=== PATIENT | female | born 1945 | race Caucasian/White ===

== ENCOUNTER 2018-01-30 15:00 | Emergency (ER) | payer MEDICARE, SELFPAY ==
[2018-01-30 15:08] VITALS: BP 137/48; PULSE 62; RESP 12; TEMP 36.4; O2SAT 99; BMI 25.5
--- NOTE | 2018-01-30 15:08 | ED_ITS ---
HPI - Syncope General Chief Complaint: Syncope Stated Complaint: Syncope Time Seen by Provider: 01/30/18 15:07 Source: patient and EMS Mode of arrival: EMS Limitations: no limitations History of Present Illness HPI narrative: Patient is a 72-year-old female who presents after syncopal episode. She had eyelid surgery down in [place] this morning. she was told not to eat or drink anything after midnight she did not eat anything on the drive back. She was sitting in the recliner she stood up to go the bathroom she felt extremely lightheaded dizzy and had some abdominal pain and passed out. says that was briefly in just for few minutes. She has no head injury no chest pain palpitations. She apparently has a known dilated aortic root which was on echocardiograms a couple of months ago at the cardiology office. 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 She now is feeling much better and has no complaints. Related Data Home Medications Medication Instructions Recorded Confirmed Vitamin B-12 1 tab PO DAILY 01/30/18 01/30/18 acetaminophen-codeine 1 tab PO PRN PRN 01/30/18 01/30/18 calcium carb-D3-mag ox-zinc ox 1 tab PO DAILY 01/30/18 01/30/18 erythromycin 1 applic OPHTHALMIC (EYE) 01/30/18 01/30/18 DIRECTED lisinopril 10 mg PO DAILY 01/30/18 01/30/18 metoprolol succinate 50 mg PO DAILY 01/30/18 01/30/18 multivitamin 1 tab PO DAILY 01/30/18 01/30/18 pravastatin 40 mg PO DAILY 01/30/18 01/30/18 vitamin B complex 1 tab PO DAILY 01/30/18 01/30/18 Allergies Allergy/AdvReac Type Severity Reaction Status Date / Time No Known Drug Allergies Allergy Verified 01/30/18 15:19 Review of Systems Review of Systems All systems reviewed & are unremarkable except as noted in HPI and below Constitutional Denies chills, Denies fever(s), Denies lethargy and Denies weakness Eyes Reports as per HPI Cardiovascular Reports as per HPI, Denies chest pain, Denies chest pain at rest, Reports syncope, Denies dyspnea and Denies dyspnea on exertion Respiratory Denies cough, Denies dyspnea, Denies dyspnea on exertion and Denies wheezing Gastrointestinal Gastrointestinal: Reports abdominal pain Musculoskeletal Denies back pain, Denies muscle weakness, Denies numbness and Denies tingling Neurologic Reports syncope, Denies numbness, Denies tingling and Denies weakness Allergic/Immunologic Denies wheezing PFS Medical History Hypertension (Acute) Surgical History History of eyelid surgery (Acute) Social History Smoking Status: Never smoker Exam Initial Vital Signs Initial Vital Signs: Vital Signs Temperature 97.6 F 01/30/18 15:08 Pulse Rate 62 01/30/18 15:08 Respiratory Rate 12 01/30/18 15:08 Blood Pressure 137/48 H 01/30/18 15:08 Pulse Oximetry 99 01/30/18 15:08 GENERAL: Well-appearing, well-nourished and in no acute distress. HEENT: Head atraumatic, face symmetric, moist mucous membranes EYES: Eyelids appear within normal limits no significant swelling or contusion.EOMI, pupils reactive CARDIOVASCULAR: Regular rate and rhythm without murmurs, rubs or gallops. RESPIRATORY: Breath sounds equal bilaterally, no wheezes rales or rhonchi. ABDOMEN: Soft, nontender. Normoactive bowel sounds all 4 quadrants. No guarding or rebound. No palpable masses or pulsations EXTREMITIES: Normal range of motion, no clubbing or edema. Neurovascularly intact. NEUROLOGICAL: Alert and oriented x4.Normal gait and speech. Cranial nerves II through XII grossly intact. Good [id number]-si-[id number], good [id number], strength equal bilaterally, no dysarthria or aphasia, sensation in tact to soft touch bilaterally, no visual changes, no facial droop SKIN: Warm, dry, no laceration, no petechiae, no rashes or lesions. Scores NIH Stroke Scale Level of Conciousness: Alert, keenly responsive Ask month/age: Answers both questions correctly. Open/close eyes, close hand: Performs both tasks correctly Best gaze horizontal: Normal Visual benitez: No visual loss Facial palsy: Normal symetrical movement Left arm drift: No drift for full 10 sec Right arm drift: No drift for full 10 sec Left leg drift: No drift for full 10 sec Right leg drift: No drift for full 10 sec Limb ataxia: Absent Sensory on face/arms/legs: Normal, no sensory loss Best language: No aphasia, normal Dysarthria: Normal Extinction or inattention: No abnormality Total NIH Stroke scale score: 0 Course Orders Ordered: Discontinued Medications Sodium Chloride (Normal Saline 0.9%) 1,000 mls @ 1,000 mls/hr IV BOLUS ONE Stop: 01/30/18 16:08 Last Infusion: 01/30/18 18:13 Dose: 0 mls/hr Infusion: 01/30/18 17:20 Dose: 1,000 mls/hr Infusion: 01/30/18 16:41 Dose: 0 mls/hr Admin: 01/30/18 15:57 Dose: 1,000 mls/hr Vital Signs - 8 hr 01/30/18 15:08 01/30/18 16:10 01/30/18 16:45 Temperature 97.6 F Pulse Rate 62 66 72 Respiratory Rate 12 16 18 Blood Pressure 137/48 H Blood Pressure [Right Arm] 137/63 H 148/68 H Pulse Oximetry 99 100 100 MDM - Syncope Lab Data Attestation: I reviewed the patient's lab results. Result diagrams: 01/30/18 15:40 01/30/18 15:40 Lab Results 01/30/18 01/30/18 Range/Units 15:40 15:40 WBC 7.2 (4.5-11.0) X10^3/uL RBC 4.17 (4.0-5.2) X10^6/uL Hgb 12.9 (12.0-16.0) g/dL Hct 37.6 (36-46) % MCV 90.0 (80-100) fL MCH 31.0 (26-34) PG MCHC 34.5 (30-36) % RDW 12.9 (11.6-14.8) % Plt Count 159 (150-400) X10^3/uL Neut % (Auto) 71.8 (50-75) % Lymph % (Auto) 20.4 L (25-40) % [place] % (Auto) 6.3 (3-14) % Eos % (Auto) 0.9 L (2-4) % Baso % (Auto) 0.6 (0-2) % Neut # (Auto) 5200 (8590-4625) /uL Sodium 145 (137-145) mmol/L Potassium 3.8 (3.4-5.1) mmol/L Chloride 108 H (98-107) mmol/L Carbon Dioxide 27 (22-32) mmol/L BUN 15 (7-17) mg/dL Creatinine 0.70 (0.52-1.04) mg/dL Estimated GFR > 60.0 (>60) mL/min BUN/Creatinine Ratio 21.4 (6-22) Glucose 128 H (80-110) mg/dL Calcium 8.5 (8.4-10.2) mg/dL Total Bilirubin 0.6 (0.2-1.3) mg/dL AST 53 H (14-36) IU/L ALT 43 (9-52) IU/L Alkaline Phosphatase 59 (38-126) U/L Total Creatine Kinase 77 (30-135) U/L Troponin I < 0.012 (0.01-0.034) ng/mL Total Protein 6.0 L (6.3-8.2) g/dL Albumin 3.7 (3.5-5.0) g/dL Globulin 2.3 (1.7-4.1) g/dL Albumin/Globulin Ratio 1.6 (1.0-2.8) Imaging Data CT angio: Radiologist's impression: PROCEDURE: CT ANGIO CHEST ABDOMEN PELVIS INDICATIONS: Syncope with hypotension, known dilated aortic root per patient. TECHNIQUE: Precontrast 5 mm thick sections acquired from the lung apices to the iliac crests. After the administration of intravenous contrast, 2.5 mm thick sections again acquired from the lung apices to the iliac crests. Maximum intensity projection (MIP) oblique sagittal and coronal reformats were then acquired. For radiation dose reduction, the following was used: automated exposure control. COMPARISON: None. FINDINGS: Image quality: Excellent. AORTA: Mild diffuse plaque, causing mild diffuse stenosis. Left vertebral artery arises directly from the aortic arch, indicating a normal variant. No evidence of aortic dissection, nor aneurysm. CHEST: Lungs and pleura: No acute airspace opacities. Mild dependent bibasilar scarring versus atelectasis is present. No pleural effusions or pneumothorax. Central and peripheral airways are patent and normal in caliber. Mediastinum: Heart size is normal. There is calcification of the coronary vasculature. No pericardial effusion. No mediastinal or hilar adenopathy by size criteria. Central pulmonary arteries are normal in size. Esophagus is normal in caliber. No hiatal hernias. Bones and chest wall: No axillary adenopathy by size criteria. Thyroid gland demonstrates small bilateral low density nodules. No suspicious bony lesions. No vertebral body compression fractures. ABDOMEN: Vasculature: Celiac trunk and mesenteric arteries are patent. Renal arteries are also patent. Solid organs: Liver is normal in size and enhancement. Gallbladder is surgically absent. Biliary system is non dilated. Pancreas enhances normally. Spleen is normal in size and enhancement. No adrenal nodules. Both kidneys are normal in size and enhancement, without hydronephrosis. Peritoneum and bowel: No free fluid or air. Moderate gastric distention is present. Bowel loops are otherwise normal in caliber and wall thickness. The appendix is not seen. Appendectomy clips are present. Nodes and vessels: No retroperitoneal or mesenteric adenopathy by size criteria. Inferior vena cava is normal in morphology. Miscellaneous: No ventral hernias. PELVIS: Genitourinary: Bladder wall thickness is normal. Miscellaneous: No inguinal hernias or adenopathy. No ventral hernias. Bones: No suspicious bony lesions. No vertebral body compression fractures. IMPRESSION: 1. Moderate gastric distention, possibly indicating peptic ulcer disease or obstructing neoplasm. Endoscopy could be performed for further assessment, if clinically indicated. 2. Bilateral thyroid nodules, which could be further assessed with nonemergent ultrasound, if clinically indicated. 3. Coronary artery disease. 4. Negative evaluation of the thoracoabdominal aorta. Dictated by: Dane Barlow M.D. on 01/30/2018 at 17:04 Approved by: Dane Barlow M.D. on 01/30/2018 at 17:09 ECG Data Attestation: I personally reviewed and interpreted this ECG as follows: Prior ECG tracings: not available for review Interpretation: Normal sinus rhythm rate [address] changes no T-wave inversions no priors to compare MDM Narrative Medical decision making narrative: There is no sign of aneurysm rupture on CT. Patient likely had a syncopal episode from a not eating or drinking prior to surgery or after surgery. She is feeling better after IV fluids. She is ambulatory to the restroom. She has no focal deficits no sign of head trauma I do not believe head CT indicated at this time. She is also not on any blood thinners. I discussed all findings with the patient and spouse. Education has been performed regarding treatment plan, diagnosis, warning signs and symptoms and all concerns have been addressed. Verbally agree with and understood all of the above. Discharge Plan Departure Patient Disposition: Home, Self-Care Clinical Impression: Vasovagal syncope Discharge Date/Time: 01/30/18 18:20 Interventions: ED Discharge Assessment Last Done: 01/30/18 18:17 Instructions: Fainting Activity Restrictions/Additional Instructions: *You have been diagnosed with syncopal fainting episode *What to do: This event was likely caused from decreased intake due to recent surgery, recommend he eating and drinking normally Please follow all Ophthalmology recommendations *Continue to take medications as directed *Follow up with your primary care provider in 2-3 days *Return to ER if you should have any new, worsening or concerning symptoms Prescriptions: No Action pravastatin 40 mg tablet 40 mg PO DAILY RF: 0 metoprolol succinate 50 mg tablet extended release 24 hr 50 mg PO DAILY RF: 0 acetaminophen-codeine 300-30 mg tablet 1 tab PO PRN PRN (Reason: post-op pain) RF: 0 erythromycin 5 mg/gram (0.5 %) ointment 1 applic ophthalmic (eye) DIRECTED RF: 0 lisinopril 10 mg tablet 10 mg PO DAILY RF: 0 Vitamin B-12 1 tab PO DAILY RF: 0 calcium carb-D3-mag ox-zinc ox 1 tab PO DAILY RF: 0 multivitamin 1 tab PO DAILY RF: 0 vitamin B complex 1 tab PO DAILY RF: 0
--- NOTE | 2018-01-30 15:47 | DI.CT.S_ITS ---
PROCEDURE: CT ANGIO CHEST ABDOMEN PELVIS INDICATIONS: Syncope with hypotension, known dilated aortic root per patient. TECHNIQUE: Precontrast 5 mm thick sections acquired from the lung apices to the iliac crests. After the administration of intravenous contrast, 2.5 mm thick sections again acquired from the lung apices to the iliac crests. Maximum intensity projection (MIP) oblique sagittal and coronal reformats were then acquired. For radiation dose reduction, the following was used: automated exposure control. COMPARISON: None. FINDINGS: Image quality: Excellent. AORTA: Mild diffuse plaque, causing mild diffuse stenosis. Left vertebral artery arises directly from the aortic arch, indicating a normal variant. No evidence of aortic dissection, nor aneurysm. CHEST: Lungs and pleura: No acute airspace opacities. Mild dependent bibasilar scarring versus atelectasis is present. No pleural effusions or pneumothorax. Central and peripheral airways are patent and normal in caliber. Mediastinum: Heart size is normal. There is calcification of the coronary vasculature. No pericardial effusion. No mediastinal or hilar adenopathy by size criteria. Central pulmonary arteries are normal in size. Esophagus is normal in caliber. No hiatal hernias. Bones and chest wall: No axillary adenopathy by size criteria. Thyroid gland demonstrates small bilateral low density nodules. No suspicious bony lesions. No vertebral body compression fractures. ABDOMEN: Vasculature: Celiac trunk and mesenteric arteries are patent. Renal arteries are also patent. Solid organs: Liver is normal in size and enhancement. Gallbladder is surgically absent. Biliary system is non dilated. Pancreas enhances normally. Spleen is normal in size and enhancement. No adrenal nodules. Both kidneys are normal in size and enhancement, without hydronephrosis. Peritoneum and bowel: No free fluid or air. Moderate gastric distention is present. Bowel loops are otherwise normal in caliber and wall thickness. The appendix is not seen. Appendectomy clips are present. Nodes and vessels: No retroperitoneal or mesenteric adenopathy by size criteria. Inferior vena cava is normal in morphology. Miscellaneous: No ventral hernias. PELVIS: Genitourinary: Bladder wall thickness is normal. Miscellaneous: No inguinal hernias or adenopathy. No ventral hernias. Bones: No suspicious bony lesions. No vertebral body compression fractures. IMPRESSION: 1. Moderate gastric distention, possibly indicating peptic ulcer disease or obstructing neoplasm. Endoscopy could be performed for further assessment, if clinically indicated. 2. Bilateral thyroid nodules, which could be further assessed with nonemergent ultrasound, if clinically indicated. 3. Coronary artery disease. 4. Negative evaluation of the thoracoabdominal aorta. Dictated by: Dane Barlow M.D. on 01/30/2018 at 17:04 Approved by: Dane Barlow M.D. on 01/30/2018 at 17:09
[2018-01-30 15:50] LABS: Add Manual Diff / Slide Review NO; Basophils Percent Auto 0.6 % (0-2); Eosinophils Percent Auto 0.9 % (2-4); Hematocrit 37.6 % (36-46); Hemoglobin 12.9 g/dL (12.0-16.0); Lymphocytes Percent Auto 20.4 % (25-40); Mean Corpuscular HGB Conc 34.5 % (30-36); Monocytes Percent Auto 6.3 % (3-14); Neutrophils Absolute Auto 5200 /uL (3000-5900); Neutrophils Percent Auto 71.8 % (50-75); Platelet Count 159 X10^3/uL (150-400); Red Blood Cell Count 4.17 X10^6/uL (4.0-5.2); Red Cell Distribution Width 12.9 % (11.6-14.8); White Blood Cell Count 7.2 X10^3/uL (4.5-11.0)
[2018-01-30] MEDS: SODIUM CHLORIDE 0.9% 1,000 ML 1000 ML IV (15:57)
[2018-01-30 16:04] LABS: Alanine Aminotransferase 43 IU/L (9-52); Albumin 3.7 g/dL (3.5-5.0); Albumin Globulin Ratio 1.6 (1.0-2.8); Alkaline Phosphatase 59 U/L (38-126); Aspartate Aminotransferase 53 IU/L (14-36); BUN Creatinine Ratio 21.4 (6-22); Bilirubin Total 0.6 mg/dL (0.2-1.3); Blood Urea Nitrogen 15 mg/dL (7-17); Calcium 8.5 mg/dL (8.4-10.2); Carbon Dioxide 27 mmol/L (22-32); Chloride 108 mmol/L (98-107); Creatine Kinase 77 U/L (30-135); Estimated Glomerular Filt Rate > 60.0 mL/min (>60); Globulin 2.3 g/dL (1.7-4.1); Glucose 128 mg/dL (80-110); HEMOLYSIS 20 (0-50); Potassium 3.8 mmol/L (3.4-5.1); Sodium 145 mmol/L (137-145)
[2018-01-30 16:10] VITALS: BP 137/63; PULSE 66; RESP 16; O2SAT 100
[2018-01-30 16:19] LABS: Troponin I < 0.012 ng/mL (0.01-0.034)
[2018-01-30 16:45] VITALS: BP 148/68; PULSE 72; RESP 18; O2SAT 100
[2018-01-30 18:00] VITALS: BP 138/59; PULSE 62; RESP 13; O2SAT 99
== END 2018-01-30 18:20 | disposition home or self-care (01) ==
PROVIDERS: Emergency Provider Emergency Medicine
DX: R55 Syncope and collapse (principal)
CPT/HCPCS: 71275; 74174; 80053; 82550; 82553; 82962; 84484; 85025; 93005; 96360; 96361; 99284; 99285; Q9967

== ENCOUNTER → 2020-08-03 08:54 | Outpatient (CLI) | payer MEDICARE, SELFPAY ==
[2020-08-03 10:10] LABS: COVID19 -Nasal RAPID Negative (Negative)
== END ==
PROVIDERS: Visit Provider Physician Assistant
DX: Z20.822 Contact with and (suspected) exposure to COVID-19 (principal)
CPT/HCPCS: 87635; C9803

== ENCOUNTER 2020-08-05 08:30 | Day surgery (SDC) | payer MEDICARE, SELFPAY ==
--- NOTE | 2020-08-05 | PATH_ITS ---
[facility] Accession Number: [id number] . 01 Material submitted: . PART A: duodenum bulb - NODULE IN DUODENAL BULB PART B: gastrointestinal site - GASTRIC . 01 Clinical history: . EGD B. RULE OUT H. PYLORI . 02 Diagnosis: A. Duodenal Bulb, Nodule, Biopsy: Consistent with gastric heterotopia. Negative for intraepithelial lymphocytosis. Negative for dysplasia and malignancy. . B. Stomach, Biopsy: Antral mucosa with reactive gastropathy. Body-type mucosa with no diagnostic abnormality. No evidence of Helicobacter organisms on H/E stain. Negative for intestinal metaplasia. Negative for dysplasia and malignancy. . [facility] 08/07/2020 1505 Local . 02 Comment: B. An immunohistochemical stain will be performed to evaluate for Helicobacter organisms, and the results reported as an addendum. . 02 Electronically signed: . Sonali Ramirez MD, Pathologist NPI- [id number] . 01 Gross description: . Part A: NODULE IN DUODENAL BULB: Received in formalin are multiple fragment(s) of larose, soft tissue measuring 0.1 x 0.1 x 0.1 cm to 0.2 x 0.2 x 0.1 cm submitted entirely in 1 cassette(s) Part B: GASTRIC: Received in formalin are 4 fragment(s) of larose, soft tissue measuring 0.1 x 0.1 x 0.1 cm to 0.3 x 0.2 x 0.2 cm submitted entirely in 1 cassette(s) /[facility] 08/06/2020 1854 Local . 02 Pathologist provided ICD-10: R19.8 . 02 CPT . 273124, 734096, [id number] Performed at: 01 [facility] [address] [id number] MD Js Marroquin MD Phone: [phone] Performed at: 02 [facility] [id number] [place] [id number] MD Sonali Ramirez MD Phone: [phone]
[2020-08-05 08:53] VITALS: BP 163/75; PULSE 78; RESP 13; TEMP 36.2; O2SAT 99; BMI 25.8
[2020-08-05] MEDS: SODIUM CHLORIDE 0.9% 1,000 ML 70 ML IV (09:15)
[2020-08-05 09:19] VITALS: BMI 25.8
--- NOTE | 2020-08-05 09:19 | P.HP_ITS ---
History of Present Illness History of Present Illness Date Patient Seen: 08/05/20 Time Patient Seen: 09:15 Chief complaint: EGD Narrative: Patient is a pleasant 75-year-old female who presented for upper endoscopy. She was last evaluated by video visit earlier this month. She was describing symptoms of gastroesophageal reflux and a sore throat. She does have a previous history of gastroparesis. She also had a CT scan of the abdomen pelvis in 2018 which did show concern for peptic ulcer disease versus mass. Patient History Medical History (Updated 02/14/18 @ 00:00 by ) Hypertension Surgical History (Updated 01/31/18 @ 07:51 by Vidya Lozada DO) History of eyelid surgery Family & Social History Social History: household members spouse Tobacco & Substance use: Smoking Status Never smoker alcohol intake frequency a few times a month Substance Use Type does not use Meds Home Medications and Allergies Home Medications Medication Instructions Recorded Confirmed Type Vitamin B-12 1 tab PO DAILY 01/30/18 01/30/18 History calcium carb-D3-mag ox-zinc ox 1 tab PO DAILY 01/30/18 08/05/20 History lisinopril 10 mg PO DAILY 01/30/18 01/30/18 History metoprolol succinate 50 mg PO DAILY 01/30/18 01/30/18 History multivitamin 1 tab PO DAILY 01/30/18 08/05/20 History pravastatin 40 mg PO DAILY 01/30/18 01/30/18 History vitamin B complex 1 tab PO DAILY 01/30/18 08/05/20 History Allergies Allergy/AdvReac Type Severity Reaction Status Date / Time No Known Drug Allergies Allergy Verified 01/30/18 15:19 Review of Systems Review of Systems ROS: Yes All systems reviewed with the patient and are negative except as otherwise documented Exam Vital Signs (past 8 hours): - 08/05/20 08:53 Temperature 97.1 F L Pulse Rate 78 Respiratory Rate 13 Blood Pressure 163/75 H Pulse Oximetry 99 Oxygen Delivery Method Room Air Oxygen Flow Rate 0 Const General: cooperative, healthy appearing, comfortable, well developed and well groomed Nutritional Appearance: average body habitus and well nourished [facility] Head: normocephalic and atraumatic Resp Effort & Inspection: normal respiratory effort, able to speak in complete sentences and abnormal respiratory pattern Auscultation: clear to auscultation bilaterally Cardio Rate: regular rate Rhythm: regular rhythm Heart Sounds: S1 normal and S2 normal GI Palpation: soft Auscultation: normal bowel sounds Extrem Right lower extremity: no edema Left lower extremity: no edema Assessment & Plan Assessment & Plan narrative: 1. Sore throat 2. GERD 3. Abnormal CT scan - EGD today, further recommendations to follow
[2020-08-05] MEDS: LIDOCAINE 4% SOLN 50 ML 20 ML TOP (09:21)
[2020-08-05] MEDS: MIDAZOLAM 5 MG/5 ML VIAL IV (09:24)
[2020-08-05] MEDS: fentaNYL 250 MCG/5 ML INJ IV (09:24)
[2020-08-05 09:39] VITALS: BP 114/61; PULSE 63; RESP 12; TEMP 36.7; O2SAT 93
--- NOTE | 2020-08-05 09:39 | PM.OP.ENDO ---
Operative Date/Time/Diagnoses Date of procedure: 08/05/20 Time of procedure: 09:22 Procedure Notes Procedure in detail: Surgeon: Letty Medrano DO Procedure: Esophagogastroduodenoscopy with biopsy Preoperative diagnosis: 1. Heartburn/gastroesophageal reflux 2. Sore throat 3. Abnormal CT scan 2018 Postoperative diagnosis: 1. Normal-appearing esophagus 2. Small hiatal hernia 3. Rule out H pylori 4. Nodular mucosa in the duodenal bulb, biopsied Medications: Conscious sedation using 4 mg IV of Midazolam and 100 mcg IV of Fentanyl, 4% lidocaine gargle Preanesthesia Assessment An H and P was performed/updated and the Px?s ASA class is 2. The procedure was discussed in detail with the patient. The potential risks and complications including infection, bleeding, missed lesions, perforation, need for surgery in case of perforation, prolonged hospital stay, and were explained. A brief question and answer period was allotted and once all questions were answered, informed consent was obtained. The patient was brought back to the procedure room and placed on standard monitoring. The patient?s vital signs were monitored continuously throughout the entire procedure. Prior to starting, a timeout was performed to confirm the patient?s identity, allergies, medications, and procedure. Procedure in detail The patient was placed in left lateral decubitus position and a bite block was inserted. The tip of the upper endoscope was placed into the mouth and advanced without difficulty under direct visualization into the esophagus. Esophagus: Normal-appearing esophagus Stomach: Small hiatal hernia Normal-appearing gastric mucosa, biopsied to rule out H pylori Duodenum: Nodular mucosa in the gastric colon, biopsied The patient tolerated the procedure well and will be brought back to the recovery area to be discharged once criteria are met. The total physician intraservice time was 10min. Complications There were no complications and estimated blood loss was minimal. Recommendations: Resume previous diet Continue outPx medications Follow up pathology results Office follow up if persistent symptoms An emergency contact number was given to the patient for any complications related to the procedure
[2020-08-05 09:44] VITALS: BP 112/58; PULSE 61; RESP 15; O2SAT 94
[2020-08-05 09:48] VITALS: BP 123/63; PULSE 69; RESP 18; O2SAT 95
[2020-08-05 09:54] VITALS: BP 110/58; PULSE 66; RESP 16; O2SAT 95
[2020-08-05 09:56] VITALS: BP 103/62; PULSE 62; RESP 11; TEMP 36.4; O2SAT 97
== END 2020-08-05 10:22 | disposition home or self-care (01) ==
PROVIDERS: Referring Provider Student in an Organized Health Care Education/Training Program; Visit Provider Student in an Organized Health Care Education/Training Program
PROC: 0DJ08ZZ Inspection of Upper Intestinal Tract, Via Natural or Artificial Opening Endoscopic (ICD-10-PCS; CPT 43235; principal; 2020-08-05 09:30)
DX: K21.9 Gastro-esophageal reflux disease without esophagitis (principal); J02.9 Acute pharyngitis, unspecified; K44.9 Diaphragmatic hernia without obstruction or gangrene
CPT/HCPCS: 43239; J2250; J3010

== ENCOUNTER → 2021-03-04 10:46 | Outpatient (CLI) | payer MEDICARE, SELFPAY ==
[2021-03-04 11:47] LABS: Alanine Aminotransferase 27 IU/L (<35); Albumin 4.6 g/dL (3.5-5.0); Albumin Globulin Ratio 1.6 (1.0-2.8); Alkaline Phosphatase 72 U/L (38-126); Aspartate Aminotransferase 36 IU/L (14-36); BUN Creatinine Ratio 28.8 (6-22); Bilirubin Total 1.2 mg/dL (0.2-1.3); Blood Urea Nitrogen 21 mg/dL (7-17); Calcium 9.7 mg/dL (8.4-10.2); Carbon Dioxide 27 mmol/L (22-32); Chloride 106 mmol/L (98-107); Cholesterol 168 mg/dL (140-199); Estimated Glomerular Filt Rate > 60.0 mL/min (>60); Globulin 2.8 g/dL (1.7-4.1); Glucose 93 mg/dL (80-110); HDL Cholesterol 52 mg/dL (40-60); HEMOLYSIS < 15 (0-50); LDL Cholesterol Calculated 84 mg/dL (<100); Potassium 4.4 mmol/L (3.4-5.1); Sodium 140 mmol/L (137-145); Total Protein 7.4 g/dL (6.3-8.2); Triglycerides 159 mg/dL (35-150)
== END ==
PROVIDERS: Referring Provider Internal Medicine Cardiovascular Disease; Visit Provider Internal Medicine Cardiovascular Disease
DX: I10 Essential (primary) hypertension (principal); E78.00 Pure hypercholesterolemia, unspecified
CPT/HCPCS: 36415; 80053; 80061

== ENCOUNTER → 2022-03-04 11:19 | Outpatient (CLI) | payer MEDICARE, SELFPAY ==
[2022-03-04 12:55] LABS: Cholesterol 190 mg/dL (140-199); HDL Cholesterol 55 mg/dL (40-60); LDL Cholesterol Calculated 103 mg/dL (<100); Triglycerides 161 mg/dL (35-150)
== END ==
PROVIDERS: PCP Internal Medicine; Referring Provider Internal Medicine Cardiovascular Disease; Visit Provider Internal Medicine Cardiovascular Disease
DX: I10 Essential (primary) hypertension (principal); I71.2 Thoracic aortic aneurysm, without rupture; E78.00 Pure hypercholesterolemia, unspecified
CPT/HCPCS: 36415; 80061

== ENCOUNTER → 2022-03-15 09:08 | Outpatient (CLI) | payer MEDICARE, SELFPAY ==
[2022-03-15 10:42] LABS: COVID19 -Nasal RAPID Negative (Negative)
== END ==
PROVIDERS: PCP Internal Medicine; Visit Provider Surgery
DX: Z20.822 Contact with and (suspected) exposure to COVID-19 (principal); Z01.812 Encounter for preprocedural laboratory examination
CPT/HCPCS: 87635; C9803

== ENCOUNTER 2022-03-16 11:35 | Day surgery (SDC) | payer MEDICARE, SELFPAY ==
[2022-03-16 12:35] VITALS: BMI 24.7
[2022-03-16 13:04] VITALS: BP 155/83; PULSE 68; RESP 16; TEMP 36.9; O2SAT 99
[2022-03-16] MEDS: LACTATED RINGERS 1,000 ML 42 ML IV (13:06)
--- NOTE | 2022-03-16 13:55 | PM.HP.1 ---
History of Present Illness History of Present Illness Chief complaint: Colonoscopy Patient History Medical History (Updated 07/07/21 @ 11:32 by MICKI Amaral) Hypertension Surgical History (Updated 03/16/22 @ 12:32 by Cynthia Damian RN) History of eyelid surgery History of laparoscopic appendectomy Hx laparoscopic cholecystectomy Family & Social History Social History: household members spouse Tobacco & Substance use: Smoking Status Never smoker alcohol intake current alcohol intake frequency a few times a month Substance Use Type does not use Meds Home Medications and Allergies Home Medications Medication Instructions Recorded Confirmed Type Vitamin B-12 1 tab PO DAILY 01/30/18 03/16/22 History calcium carb-D3-mag ox-zinc ox 1 tab PO DAILY 01/30/18 03/16/22 History lisinopril 10 mg tablet 10 mg PO DAILY 01/30/18 03/16/22 History pravastatin 40 mg tablet 40 mg PO DAILY 01/30/18 03/16/22 History vitamin B complex 1 tab PO DAILY 01/30/18 07/07/21 History metoprolol tartrate 25 mg tablet 25 mg PO DAILY PRN Hypertension 03/16/22 03/16/22 History Allergies Allergy/AdvReac Type Severity Reaction Status Date / Time No Known Drug Allergies Allergy Verified 03/16/22 12:31 Review of Systems Review of Systems Narrative: Negative Exam Vital Signs (past 8 hours): - 03/16/22 13:04 Temperature 98.4 F Pulse Rate 68 Respiratory Rate 16 Blood Pressure 155/83 H Pulse Oximetry 99 Oxygen Delivery Method Room Air Oxygen Delivery Method Room Air Narrative Exam Narrative: Awake alert and oriented x3, pupils equal round reactive to light, oropharynx clear, heart regular rate and rhythm, lungs clear to auscultation bilaterally, abdomen nontender and nondistended, extremities without edema, no gross neurologic deficits noted Assessment & Plan Assessment & Plan narrative: Colon cancer screening for colonoscopy today Time Spent With Patient Critical Care time: I spent a total of [] minutes of critical care time on this patient's care today; this time is exclusive of procedural time.
[2022-03-16 14:56] VITALS: BP 137/66; PULSE 67; RESP 18; TEMP 36.4; O2SAT 98
--- NOTE | 2022-03-16 14:57 | PM.OP.COLON ---
Operative Date/Time/Diagnoses Date of procedure: 03/16/22 Procedure & Clinicians Study performed: Aborted diagnostic colonoscopy Indications: Colon cancer screening. Personal history of colon polyps. Last colonoscopy was done in 2016. Procedure Notes Procedure in detail: Prior to the procedure, history and physical was performed, and patient medications and allergies were reviewed. Preprocedure nursing history and assessment was reviewed. Patient identification and proposed procedure were verified by the physician and nurse in the procedure room. The physical status of the patient was reassessed after the procedure. After informed consent was obtained including risks, benefits, and alternatives, the scope was passed under direct vision. Throughout the procedure, the patient's blood pressure, pulse, and oxygen saturations were monitored continuously. The pediatric colonoscope was introduced through the anus and advanced to the sigmoid where it could not be advanced further. This was replaced with the EGD scope which was advanced to the transverse colon. The patient tolerated the procedure well. Bowel prep was deemed adequate to detect polyps greater than 5 mm. REMBERTO and perianal examinations unremarkable. Retroflexion in the rectum revealed grade 1 internal hemorrhoids. Numerous medium-sized diverticula noted throughout the sigmoid colon. An area of severe congestion and erythema was noted from 15cm to 20 cm in the sigmoid colon. There was a focal erosion in this region with scant mucosal hemorrhage concerning for an inflamed diverticulum. This area could not be traversed with the pediatric colonoscope, but could be traversed with the EGD scope. The EGD scope was advanced to the transverse colon where significant looping was encountered. No mucosal abnormalities were seen aside from scattered diverticula from the transverse colon through the distal descending colon. Decision was made to abort the colonoscopy in order to avoid exacerbating any acute pathology at the sigmoid colon. Impression: Internal hemorrhoids Severely congested and erythematous mucosa from 15-20 cm in sigmoid colon with a hemorrhagic, inflamed focal erosion concerning for acute diverticulitis Acute angulation and tortuosity encountered in the sigmoid colon precluding completion of colonoscopy Complications: other (EBL minimal. No complications) Post-procedure Plan for aftercare: Perform CT of the abdomen and pelvis with IV contrast JERICA Consume a clear to full liquid diet for now. Continue home medications If abdominal pain, fevers, chills, nausea, vomiting, abdominal distension or other acute GI symptoms develop, proceed to the nearest emergency department Patient has a contact number available for emergencies. The signs and symptoms of potential delayed complications were discussed with the patient. Return to normal activities tomorrow. Written discharge instructions were provided to the patient. Discharge home with escort
[2022-03-16 15:01] VITALS: BP 143/73; PULSE 60; RESP 13; O2SAT 99
[2022-03-16 15:06] VITALS: BP 153/77; PULSE 62; RESP 12; O2SAT 99
[2022-03-16 15:20] VITALS: BP 168/79; PULSE 60; RESP 24; TEMP 36.1; O2SAT 98
--- NOTE | 2022-03-16 15:22 | SUR.PHASEI ---
Labs for kidney function drawn per
[2022-03-16 15:28] VITALS: BP 165/74; PULSE 60; RESP 16; TEMP 36.4; O2SAT 98
[2022-03-16 15:54] LABS: BUN Creatinine Ratio 17.6 (6-22); Blood Urea Nitrogen 15 mg/dL (7-17); Estimated Glomerular Filt Rate > 60 mL/min (>60)
== END 2022-03-16 15:39 | disposition home or self-care (01) ==
PROVIDERS: PCP Internal Medicine; Referring Provider Internal Medicine; Visit Provider Internal Medicine
PROC: 0DJD8ZZ Inspection of Lower Intestinal Tract, Via Natural or Artificial Opening Endoscopic (ICD-10-PCS; CPT 45378; principal; 2022-03-16 13:30)
DX: Z86.010 Personal history of colon polyps (principal); Z12.11 Encounter for screening for malignant neoplasm of colon; K63.3 Ulcer of intestine; K56.2 Volvulus; K57.30 Diverticulosis of large intestine without perforation or abscess without bleeding; K64.0 First degree hemorrhoids; I10 Essential (primary) hypertension
CPT/HCPCS: 45378; 36415; 82565; 84520; J2704

== ENCOUNTER → 2022-03-18 10:27 | Outpatient (CLI) | payer MEDICARE, SELFPAY ==
--- NOTE | 2022-03-18 10:29 | DI.CT.S_ITS ---
PROCEDURE: CT ABDOMEN PELVIS W CON INDICATIONS: Diverticulosis of large intestine TECHNIQUE: After the administration of oral and intravenous contrast, axial sections were acquired from the lung bases to the pubic symphysis. Coronal and sagittal reformats were performed. For radiation dose reduction, the following was used: automated exposure control, adjustment of mA and/or kV according to patient size. COMPARISON:None. FINDINGS: Image quality: Excellent. Lung bases: Unremarkable. Heart: No significant findings. ABDOMEN: Liver: Unremarkable. Gallbladder: Status post cholecystectomy. Biliary ducts: Unremarkable. Pancreas: Unremarkable. Spleen: Unremarkable. Adrenal Glands: Unremarkable. Kidneys and Ureters: Unremarkable. Stomach and Bowel: The distal esophagus, stomach, and small bowel are normal. There is no significant diverticulosis except in the distal sigmoid colon. No diverticulitis. There is thickening of the distal sigmoid which has an irregular appearance and is concerning for neoplasm. Peritoneum: No abnormal intraperitoneal fluid. No free air. Ventral Wall: No hernia. Abdominal Nodes: No retroperitoneal or mesenteric adenopathy by size criteria. Vessels: The aorta has atherosclerosis with no aneurysmal dilatation. PELVIS: Pelvic Organs: Pelvic venous vasculature is prominent consistent with pelvic congestion syndrome. Bladder: Unremarkable. Pelvic Nodes: No enlarged lymph nodes. Miscellaneous: No inguinal hernias are seen. Bones: Degenerative changes with no focal abnormality. IMPRESSION: 1. No acute abdominal or pelvic abnormality. 2. Diverticulosis in the sigmoid colon with no diverticulitis. 3. There is thickening of the mckenzie of the distal sigmoid colon which appears asymmetric and concerning for neoplasm. Recommend colonoscopy if not already previously performed. 4. Prominence of the pelvic vasculature, especially on the left consistent with venous pelvic congestion syndrome. Dictated by: Scott Rosales M.D. on 03/18/2022 at 14:37 Approved by: Scott Rosales M.D. on 03/18/2022 at 14:43
== END ==
PROVIDERS: PCP Internal Medicine; Referring Provider Internal Medicine; Visit Provider Internal Medicine
DX: K57.30 Diverticulosis of large intestine without perforation or abscess without bleeding (principal); R93.5 Abnormal findings on diagnostic imaging of other abdominal regions, including retroperitoneum
CPT/HCPCS: 74177; Q9967

== ENCOUNTER → 2022-03-22 18:52 | Outpatient (CLI) | payer MEDICARE, SELFPAY ==
--- NOTE | 2022-03-22 18:55 | DI.MRI.S_ITS ---
PROCEDURE: MR PELVIS WO/W CON INDICATIONS: Possible colonic mass on prior imaging. No definite mass seen on recent colonoscopy, no biopsies obtained at that time. TECHNIQUE: Coronal HASTE, sagittal T2 FSE, axial T1 FSE, axial and coronal nonbreath-hold T2 FSE. Axial dynamic VIBE during administration of contrast. Post-contrast axial and coronal VIBE/2-D FLASH with fat saturation from the iliac crests to the symphysis. Optional diffusion weighted imaging and ADC may be performed. COMPARISON: [facility], CT, CT ABDOMEN PELVIS W CON, 03/18/2022, 12:18. FINDINGS: Image quality: Excellent. Rectum: No definite rectal mass visualized. At the downstream sigmoid colon, near the rectosigmoid junction above the level of the peritoneal reflection, there is a segment of wall thickening of the sigmoid colon with infiltration/edema of the adjacent fat suggestive of acute diverticulitis. Small extraluminal focus of gas adjacent to this area with adjacent enhancement may represent the inflamed diverticulum (for example axial postcontrast series 19, image 19), a tiny developing abscess or microperforation is difficult to exclude. On T2 weighted images, there is suggestion of discontinuity of the colonic wall (sagittal T2 series 3, image 27). Allowing for differences in modality, the pericolonic inflammation does not appear substantially changed in extent since the recent CT. No large volume of extra colonic air or fluid is identified. Other bowel and peritoneum: No substantial pelvic free fluid or free air as above. More proximal colon and small bowel loops are normal in caliber. Bones: Marrow is normal in overall signal. IMPRESSION: 1. No definite rectal mass visualized by MR. 2. Findings are suggestive of acute diverticulitis at the downstream sigmoid colon near the rectosigmoid junction. As there can be overlap in the imaging appearance of diverticulitis and colonic carcinoma, consideration of repeat colonoscopy after completion of therapy may be helpful. 3. Small focus of extraluminal gas with adjacent edema present adjacent to the segment of thickened sigmoid colon may represent had the inflamed diverticulum, however a tiny non-drainable developing abscess or micro-perforation could have this appearance. On T2 weighted images, the wall of the colon appears discontinuous in this area, however the extent of edema and inflammation in this region does not appear substantially changed since the recent CT and there is no large volume extraluminal gas or fluid present to suggest a large colonic perforation. Results of no definite rectal mass, findings suspicious for downstream sigmoid diverticulitis, suspected inflammed diverticulum versus tiny developing abscess and suggestion for follow-up after completion of therapy discussed with Dr. Rasmussen by Dr. Banda at 1414 hours on 03/23/22. Dictated by: Gurjit Banda M.D. on 03/23/2022 at 13:49 Approved by: Gurjit Banda M.D. on 03/23/2022 at 15:19
== END ==
PROVIDERS: PCP Internal Medicine; Referring Provider Internal Medicine; Visit Provider Internal Medicine
DX: C18.7 Malignant neoplasm of sigmoid colon (principal); R93.3 Abnormal findings on diagnostic imaging of other parts of digestive tract
CPT/HCPCS: 72197; A9579

== ENCOUNTER → 2022-04-19 19:43 | Outpatient (CLI) | payer MEDICARE, SELFPAY ==
--- NOTE | 2022-04-19 | DI.MRI.S_ITS ---
PROCEDURE: MR PELIS WO/W CON INDICATIONS: diverticulosis of sigmoid/mass of sigmoid colon TECHNIQUE: Coronal HASTE, sagittal T2 FSE, axial T1 FSE, axial and coronal nonbreath-hold T2 FSE. Axial dynamic VIBE during administration of contrast. Post-contrast axial and coronal VIBE/2-D FLASH with fat saturation from the iliac crests to the symphysis. Optional diffusion weighted imaging and ADC may be performed. COMPARISON: [facility], CT, CT ABDOMEN PELVIS W CON, 03/18/2022, 12:18. [facility], MR, MR PELVIS WO/W CON, 03/22/2022, 19:01. FINDINGS: Image quality: Excellent. Rectum and distal colon: In the distal sigmoid colon/proximal rectum, there is a small diverticulum with thick wall and trace adjacent residual fat stranding along the mesenteric side. Focal underlying colon wall thickening and enhancement in this area has decreased since the prior study and the thickened segment has considerably shortened but not resolved (potentially at a valve). No abnormal T2 signal to suggest definite underlying mass. There is no adjacent free fluid or focal fluid collection. Distally the rectum appears normal Regional lymph nodes (mesorectal, inguinal, iliac): No suspicious adenopathy. Other soft tissues and peritoneum: The uterus contains a few small myometrial fibroids. Ovarian tissue appears normal. Visible small bowel and proximal colon are normal without distension or wall thickening. The urinary bladder has a normal wall thickness. Hree thrown vaginal canal appear normal. Bones: Marrow is normal in overall signal. IMPRESSION: 1. Near complete resolution of focal colon wall thickening adjacent to a thick-walled diverticulum with trace adjacent inflammation. 2. No definite underlying colorectal mass. Correlate with colonoscopy appearance. 3. No development of pericolonic or intramural abscess. Dictated by: Tiarra Mike M.D. on 04/20/2022 at 10:10 Approved by: Tiarra Mike M.D. on 04/20/2022 at 10:40
== END ==
PROVIDERS: PCP Internal Medicine; Referring Provider Internal Medicine; Visit Provider Internal Medicine
DX: K57.30 Diverticulosis of large intestine without perforation or abscess without bleeding (principal); K63.9 Disease of intestine, unspecified
CPT/HCPCS: 72197; A9579

== ENCOUNTER → 2022-04-29 11:54 | Outpatient (CLI) | payer MEDICARE, SELFPAY ==
[2022-04-29 13:33] LABS: COVID19 -Nasal RAPID Negative (Negative)
== END ==
PROVIDERS: PCP Internal Medicine; Visit Provider Surgery
DX: Z20.822 Contact with and (suspected) exposure to COVID-19 (principal); Z01.812 Encounter for preprocedural laboratory examination
CPT/HCPCS: 87635; C9803

== ENCOUNTER 2022-05-02 07:56 | Day surgery (SDC) | payer MEDICARE, SELFPAY ==
--- NOTE | 2022-05-02 | PATH_ITS ---
[facility] Accession Number: [id number] . 01 Material submitted: . colon - ASCENDING COLON POLYP . 01 Diagnosis: Ascending Colon Polyp, Biopsy: Tubular adenoma. MRV 05/03/2022 1656 Local . 01 Electronically signed: . Len Forrest MD, PhD, Pathologist NPI- [id number] . 01 Gross description: . ASCENDING COLON POLYP: Received in formalin is 1 fragment(s) of larose, soft tissue measuring 0.3 x 0.2 x 0.2 cm submitted entirely in 1 cassette(s) /LEBRON 05/03/2022 0131 Local . 01 Pathologist provided ICD-10: D12.2 . 01 CPT . 395526 Specimen Comment: A courtesy copy of this report has been sent to [phone] Specimen Comment: [id number], Performed at: 01 [facility] [address] [place] [address] [id number] MD Js Marroquin MD Phone: [phone]
[2022-05-02 08:14] VITALS: BP 134/75; PULSE 70; RESP 15; TEMP 36.3; O2SAT 98; BMI 24.3
[2022-05-02] MEDS: LACTATED RINGERS 1,000 ML 84 ML IV (08:36)
--- NOTE | 2022-05-02 09:06 | PM.HP.1 ---
History of Present Illness History of Present Illness Chief complaint: DX COLONOSCOPY Patient History Medical History (Updated 07/07/21 @ 11:32 by MICKI Amaral) Hypertension Surgical History (Updated 03/16/22 @ 12:32 by Cynthia Damian RN) History of eyelid surgery History of laparoscopic appendectomy Hx laparoscopic cholecystectomy Family & Social History Social History: household members spouse Tobacco & Substance use: Smoking Status Never smoker alcohol intake current alcohol intake frequency a few times a month Substance Use Type does not use Meds Home Medications and Allergies Home Medications Medication Instructions Recorded Confirmed Type Vitamin B-12 1 tab PO DAILY 01/30/18 03/16/22 History calcium carb-D3-mag ox-zinc ox 1 tab PO DAILY 01/30/18 03/16/22 History lisinopril 10 mg tablet 10 mg PO DAILY 01/30/18 05/02/22 History pravastatin 40 mg tablet 40 mg PO DAILY 01/30/18 05/02/22 History vitamin B complex 1 tab PO DAILY 01/30/18 07/07/21 History metoprolol tartrate 25 mg tablet 25 mg PO DAILY PRN Hypertension 03/16/22 05/02/22 History Allergies Allergy/AdvReac Type Severity Reaction Status Date / Time No Known Drug Allergies Allergy Verified 05/02/22 08:30 Review of Systems Review of Systems Narrative: Negative Exam Vital Signs (past 8 hours): - 05/02/22 08:14 Temperature 97.3 F L Pulse Rate 70 Respiratory Rate 15 Blood Pressure 134/75 Pulse Oximetry 98 Oxygen Delivery Method Room Air Oxygen Delivery Method Room Air Narrative Exam Narrative: Awake alert and oriented x3, pupils equal round reactive to light, oropharynx clear, heart regular rate and rhythm, lungs clear to auscultation bilaterally, abdomen nontender and nondistended, extremities without edema, no gross neurologic deficits noted Assessment & Plan Assessment & Plan narrative: Abnormal MRI for colonoscopy Time Spent With Patient Critical Care time: I spent a total of [] minutes of critical care time on this patient's care today; this time is exclusive of procedural time.
--- NOTE | 2022-05-02 09:39 | PM.OP.COLON ---
Operative Date/Time/Diagnoses Date of procedure: 05/02/22 Procedure & Clinicians Study performed: Colonoscopy with snare polypectomy Indications: Abnormal abdominal MRI, history of diverticulitis Procedure Notes Procedure in detail: Prior to the procedure, history and physical was performed, and patient medications and allergies were reviewed. Preprocedure nursing history and assessment was reviewed. Patient identification and proposed procedure were verified by the physician and nurse in the procedure room. The physical status of the patient was reassessed after the procedure. After informed consent was obtained including risks, benefits, and alternatives, the scope was passed under direct vision. Throughout the procedure, the patient's blood pressure, pulse, and oxygen saturations were monitored continuously. The pediatric colonoscope was introduced through the anus and advanced to the cecum as identified by the appendiceal orifice and ileocecal valve. The patient tolerated the procedure well. Bowel prep was deemed adequate to detect polyps greater than 5 mm. Digital rectal and perianal examinations were unremarkable. Retroflexion in the rectum revealed grade 2 internal hemorrhoids. The sigmoid colon was tortuous. No masses were identified. Diverticulosis was not clearly appreciated. A 4 mm sessile polyp was removed from the ascending colon with a cold snare and retrieved Impression: Internal hemorrhoids Tortuous sigmoid colon without any gross lesions noted 4 mm polyp removed from the ascending colon Complications: other (EBL minimal. No complications) Post-procedure Plan for aftercare: Follow-up pathology results Repeat colonoscopy at a date to be determined based on pathology results Make a follow-up appointment in GI Clinic to discuss MRI findings and colonoscopy results Resume home medications Resume previous diet Patient has a contact number available for emergencies. The signs and symptoms of potential delayed complications were discussed with the patient. Return to normal activities tomorrow. Written discharge instructions were provided to the patient. Discharge home with escort
[2022-05-02 09:45] VITALS: BP 105/58; PULSE 65; RESP 14; TEMP 36.1; O2SAT 99
[2022-05-02 09:55] VITALS: BP 119/63; PULSE 62; RESP 13; O2SAT 98
[2022-05-02 10:00] VITALS: BP 122/58; PULSE 65; RESP 12; O2SAT 98
[2022-05-02 11:05] VITALS: BP 124/71; PULSE 64; RESP 12; TEMP 36.6; O2SAT 100
== END 2022-05-02 10:17 | disposition home or self-care (01) ==
PROVIDERS: PCP Internal Medicine; Referring Provider Internal Medicine; Visit Provider Internal Medicine
PROC: 0DJD8ZZ Inspection of Lower Intestinal Tract, Via Natural or Artificial Opening Endoscopic (ICD-10-PCS; CPT 45378; principal; 2022-05-02 09:00)
DX: R93.5 Abnormal findings on diagnostic imaging of other abdominal regions, including retroperitoneum (principal); K64.1 Second degree hemorrhoids; D12.2 Benign neoplasm of ascending colon
CPT/HCPCS: 45385; J2704

== ENCOUNTER → 2022-05-27 13:02 | Outpatient (CLI) | payer MEDICARE, SELFPAY ==
[2022-05-27 15:37] LABS: Cholesterol 224 mg/dL (140-199); HDL Cholesterol 47 mg/dL (40-60); LDL Cholesterol Calculated 135 mg/dL (<100); Triglycerides 209 mg/dL (35-150)
== END ==
PROVIDERS: PCP Internal Medicine; Referring Provider Internal Medicine Cardiovascular Disease; Visit Provider Internal Medicine Cardiovascular Disease
DX: E78.00 Pure hypercholesterolemia, unspecified (principal)
CPT/HCPCS: 36415; 80061

== ENCOUNTER 2023-01-07 23:19 | Emergency (ER) | payer MEDICARE, SELFPAY ==
[2023-01-07 23:27] VITALS: BP 231/102; PULSE 68; RESP 15; TEMP 36.8; O2SAT 98; BMI 24.3
--- NOTE | 2023-01-07 23:33 | DI.RAD.S_ITS ---
PROCEDURE: XR CHEST 1V INDICATIONS: chest pain TECHNIQUE: One view of the chest was acquired. COMPARISON: None. FINDINGS: Surgical changes and devices: None. Lungs and pleura: Lungs are clear. No pleural effusions or pneumothorax. Mediastinum: Mediastinal contours appear normal. Heart size is normal. Bones and chest wall: No suspicious bony lesions. Overlying soft tissues appear unremarkable. IMPRESSION: No acute cardiopulmonary findings Approved by: Anival Stokes M.D. on 01/08/2023 at 0:46
[2023-01-07 23:45] VITALS: BP 229/102; PULSE 62; RESP 20; O2SAT 97
[2023-01-07 23:57] LABS: Add Manual Diff / Slide Review NO; Basophils Absolute Auto 100 /uL (0-100); Basophils Percent Auto 0.6 % (0-2); Eosinophils Absolute Auto 200 /uL (0-450); Eosinophils Percent Auto 2.4 % (2-4); Hematocrit 38.9 % (36-46); Hemoglobin 13.4 g/dL (12.0-16.0); Lymphocytes Absolute Auto 2800 /uL (1100-4500); Lymphocytes Percent Auto 32.8 % (25-40); Mean Corpuscular HGB Conc 34.5 % (30-36); Mean Corpuscular Hemoglobin 30.2 PG (26-34); Mean Corpuscular Volume 87.7 fL (80-100); Monocytes Absolute Auto 600 /uL (0-900); Monocytes Percent Auto 7.6 % (3-14); Neutrophils Absolute Auto 4900 /uL (1500-7000); Neutrophils Percent Auto 56.6 % (50-75); Platelet Count 192 X10^3/uL (150-400); Red Blood Cell Count 4.44 X10^6/uL (4.0-5.2); Red Cell Distribution Width 12.9 % (11.6-14.8); White Blood Cell Count 8.6 X10^3/uL (4.5-11.0)
[2023-01-08] VITALS (9 sets, daily range): BP systolic 150–188; BP diastolic 59–97; PULSE 46–57; RESP 11–19; O2SAT 96–99
--- NOTE | 2023-01-08 00:02 | PC.NURSE ---
Pt took her usual dose of lisinopril in the am and took her new dose of carvedilol in the am and this evening. Pt has a prescription for metoprolol that she is supposed to take for a week if her BP spikes but has not taken any for this episode of HTN.
[2023-01-08 00:08] LABS: Alanine Aminotransferase 45 IU/L (<35); Albumin 4.5 g/dL (3.5-5.0); Albumin Globulin Ratio 1.5 (1.0-2.8); Alkaline Phosphatase 107 U/L (38-126); Aspartate Aminotransferase 40 IU/L (14-36); BUN Creatinine Ratio 32.1 (6-22); Bilirubin Total 0.7 mg/dL (0.2-1.3); Blood Urea Nitrogen 25 mg/dL (7-17); Calcium 9.2 mg/dL (8.4-10.2); Carbon Dioxide 28 mmol/L (22-32); Chloride 104 mmol/L (98-107); Creatine Kinase 99 U/L (30-135); Estimated Glomerular Filt Rate > 60 mL/min (>60); Globulin 3.1 g/dL (1.7-4.1); Glucose 98 mg/dL (80-110); HEMOLYSIS < 15 (0-50); Lipase 139 U/L (23-300); Potassium 3.8 mmol/L (3.4-5.1); Sodium 140 mmol/L (137-145); Total Protein 7.6 g/dL (6.3-8.2)
[2023-01-08 00:19] LABS: Troponin I < 0.012 ng/mL (0.01-0.034)
--- NOTE | 2023-01-08 02:00 | ED_ITS ---
HPI - General Adult General Chief complaint: Hypertension Stated complaint: high blood pressure x3 days Time Seen by Provider: 01/08/23 01:59 Source: patient Mode of arrival: Ambulatory History of Present Illness HPI narrative: Patient is a 69-year-old female history of hypertension, hyperlipidemia presenting today with elevated blood pressure reading. She was recently just started on Coreg twice daily. She is been checking her blood pressure regularly in the morning today was 108 however by this evening with greater than 200. Today in the ED blood pressure initially was also quite elevated with 231/102. She reports that she is having back pain where she feels like there is a 2 x 4 cross her back. She says that he does have a history of an very small aneurysm which is not always detected. She says the pain started this morning it is not reproducible with position. She is does not think that she is having any chest pain. She is not had any abdominal pain nausea vomiting. Blood pressure has improved after waiting in the ED for some time. Related Data Home Medications Medication Instructions Recorded Confirmed Vitamin B-12 1 tab PO DAILY 01/30/18 03/16/22 calcium carb-D3-mag ox-zinc ox 1 tab PO DAILY 01/30/18 03/16/22 lisinopril 10 mg tablet 10 mg PO DAILY 01/30/18 05/02/22 pravastatin 40 mg tablet 40 mg PO DAILY 01/30/18 05/02/22 vitamin B complex 1 tab PO DAILY 01/30/18 07/07/21 metoprolol tartrate 25 mg tablet 25 mg PO DAILY PRN Hypertension 03/16/22 05/02/22 Allergies Allergy/AdvReac Type Severity Reaction Status Date / Time No Known Drug Allergies Allergy Verified 05/02/22 08:30 Review of Systems Review of Systems ROS Unobtainable: All systems reviewed & are unremarkable except as noted in HPI and below Patient History Medical History Hypertension Surgical History History of eyelid surgery History of laparoscopic appendectomy Hx laparoscopic cholecystectomy Social History household members: spouse Smoking Status: Never smoker alcohol intake: current Smoking Status: Never smoker alcohol intake frequency: a few times a month Substance Use Type: does not use Exam Initial Vital Signs Initial Vital Signs: Vital Signs Temperature 98.3 F 01/07/23 23:27 Pulse Rate 68 01/07/23 23:27 Respiratory Rate 15 01/07/23 23:27 Blood Pressure 231/102 H 01/07/23 23:27 Pulse Oximetry 98 01/07/23 23:27 Oxygen Delivery Method Room Air 01/07/23 23:27 GENERAL: Slightly anxious well-appearing 69-year-old female HEENT: Head atraumatic,EOMI, pupils reactive, face symmetric, moist mucous membranes CARDIOVASCULAR: Regular rate and rhythm without murmurs, rubs or gallops. RESPIRATORY: Breath sounds equal bilaterally, no wheezes rales or rhonchi. ABDOMEN: Soft, nontender. Normoactive bowel sounds all 4 quadrants. No guarding or rebound. EXTREMITIES: Normal range of motion, no clubbing or edema. Neurovascularly intact NEUROLOGICAL: Alert and oriented x4.Normal gait and speech. SKIN: Warm, dry, no laceration, no petechiae, no rashes or lesions. Course Orders Ordered: ED Orders 01/07/23 23:33 XR chest 1V Stat EKG-12 Lead Stat 01/07/23 23:45 Complete Blood Count AUTO DIFF Stat Comprehensive Metabolic Panel Stat Lipase Stat Troponin & CK Cardiac Panel Stat 01/08/23 02:17 CT angio chest abdomen pelvis Stat Vital Signs Vital signs: Vital Signs - 8 hr 01/08/23 00:31 01/08/23 01:00 01/08/23 01:30 Pulse Rate 51 L 48 L 47 L Respiratory Rate 11 L 14 14 Blood Pressure 156/66 H 161/68 H 171/74 H Pulse Oximetry 96 96 Oxygen Delivery Method Room Air 01/08/23 02:01 01/08/23 02:30 01/08/23 03:00 Pulse Rate 48 L 50 L 46 L Respiratory Rate 18 17 19 Blood Pressure 150/69 H 150/69 H 188/81 H Pulse Oximetry 99 Oxygen Delivery Method 01/08/23 03:31 01/08/23 05:06 Pulse Rate 47 L 57 L Respiratory Rate 15 Blood Pressure 172/74 H 182/97 H Pulse Oximetry 98 97 Oxygen Delivery Method Room Air Medical Decision Making Lab Data 01/07/23 23:45 01/07/23 23:45 Labs: Lab Results 01/07/23 01/07/23 Range/Units 23:45 23:45 WBC 8.6 (4.5-11.0) X10^3/uL RBC 4.44 (4.0-5.2) X10^6/uL Hgb 13.4 (12.0-16.0) g/dL Hct 38.9 (36-46) % MCV 87.7 (80-100) fL MCH 30.2 (26-34) PG MCHC 34.5 (30-36) % RDW 12.9 (11.6-14.8) % Plt Count 192 (150-400) X10^3/uL Neut % (Auto) 56.6 (50-75) % Lymph % (Auto) 32.8 (25-40) % [place] % (Auto) 7.6 (3-14) % Eos % (Auto) 2.4 (2-4) % Baso % (Auto) 0.6 (0-2) % Neut # (Auto) 4900 (0452-6910) /uL Lymph # (Auto) 2800 (2285-0076) /uL [place] # (Auto) 600 (0-900) /uL Eos # (Auto) 200 (0-450) /uL Baso # (Auto) 100 (0-100) /uL Sodium 140 (137-145) mmol/L Potassium 3.8 (3.4-5.1) mmol/L Chloride 104 (98-107) mmol/L Carbon Dioxide 28 (22-32) mmol/L BUN 25 H (7-17) mg/dL Creatinine 0.78 (0.52-1.04) mg/dL Estimated GFR > 60 (>60) mL/min BUN/Creatinine Ratio 32.1 H (6-22) Glucose 98 (80-110) mg/dL Calcium 9.2 (8.4-10.2) mg/dL Total Bilirubin 0.7 (0.2-1.3) mg/dL AST 40 H (14-36) IU/L ALT 45 H (<35) IU/L Alkaline Phosphatase 107 (38-126) U/L Total Creatine Kinase 99 (30-135) U/L CK-MB (CK-2) TNP CK-MB (CK-2) Rel Index TNP Troponin I < 0.012 (0.01-0.034) ng/mL Total Protein 7.6 (6.3-8.2) g/dL Albumin 4.5 (3.5-5.0) g/dL Globulin 3.1 (1.7-4.1) g/dL Albumin/Globulin Ratio 1.5 (1.0-2.8) Lipase 139 (23-300) U/L Imaging Data Chest x-ray: Radiologist's Impression: PROCEDURE:? XR CHEST 1V ? INDICATIONS:? chest pain ? TECHNIQUE:? One view of the chest was acquired.? ? COMPARISON:? None. ? FINDINGS:? ? Surgical changes and devices:? None.? ? Lungs and pleura:? Lungs are clear.? No pleural effusions or pneumothorax.? ? Mediastinum:? Mediastinal contours appear normal.? Heart size is normal.? ? Bones and chest wall:? No suspicious bony lesions.? Overlying soft tissues appear unremarkable.? ? IMPRESSION:? No acute cardiopulmonary findings ? ? ? Approved by: Anival Stokes M.D. on 01/08/2023 at 0:46? CTA: Radiologist's Impression: Preliminary report no aortic aneurysm or dissection. No acute finding and chest abdomen pelvis ECG Data Interpretation: Normal sinus rhythm rate 59 [place] interval 190 QRS 148 QTC 481 right bundle-branch block noted new from [place] [address] changes MDM Narrative Medical decision making narrative: Patient is 69-year-old female history of hypertension presenting today with elevated blood pressure. She is no evidence of end-organ damage on blood work. She is did have this mild discomfort his back. She is questionable history of an aneurysm which was not seen on CTA in 2018. Pain is not reproducible just be low her shoulder blades. Concern for dissection or aneurysm. CT angio does not show evidence of any sort of aneurysm or dissection. She is not requiring anything for pain. Blood pressure does fluctuate some. At this time she is overall feeling better and feels ready and able to go. Blood work does not show any clinical significant abnormalities. Discharge Plan Departure Patient Disposition: Home Clinical Impression: Hypertension Instructions: DI for High Blood Pressure Activity Restrictions/Additional Instructions: *You have been diagnosed with hypertension *What to do: Please continue to take your blood pressure medications previously prescribed. Please continue to check her blood pressure 1 to 2 times daily and record it. You do not have an aneurysm or any other abnormality with your aorta *Continue to take medications as directed *Follow up with your primary care provider in 2-3 days or call [phone] *Return to ER if you should have increasing chest pain shortness of breath back pain numbness tingling weakness nausea vomiting or any new, worsening or concerning symptoms Prescriptions: No Action pravastatin 40 mg tablet 40 mg PO DAILY Patient Comments: TK 1 T PO QD lisinopril 10 mg tablet 10 mg PO DAILY Vitamin B-12 1 tab PO DAILY calcium carb-D3-mag ox-zinc ox 1 tab PO DAILY vitamin B complex 1 tab PO DAILY metoprolol tartrate 25 mg tablet 25 mg PO DAILY PRN (Reason: Hypertension) Referrals: Altagracia Tipton MD [Primary Care Provider] - Stand Alone Forms: Patient Portal/API
--- NOTE | 2023-01-08 02:17 | DI.CT.S_ITS ---
PROCEDURE: CT ANGIO CHEST ABDOMEN PELVIS INDICATIONS: back pain with HTN TECHNIQUE: Precontrast 5 mm thick sections acquired from the lung apices to the iliac crests. After the administration of intravenous contrast, 2.5 mm thick sections again acquired from the lung apices to the iliac crests. Maximum intensity projection (MIP) oblique sagittal and coronal reformats were then acquired. For radiation dose reduction, the following was used: automated exposure control. COMPARISON: [facility], CT, CT ANGIO CHEST ABDOMEN PELVIS, 01/30/2018, 16:37. FINDINGS: Image quality: Excellent. AORTA: The thoracoabdominal aorta demonstrates mild diffuse plaque causing mild diffuse stenosis. No aneurysm nor dissection. CHEST: Lungs and pleura: No acute airspace opacities. There is ill-defined reticulonodular density within the right lower lobe posterolaterally, spanning roughly 20 mm, the largest nodular component of which measures roughly 8 mm. No pleural effusions or pneumothorax. Central and peripheral airways are patent and normal in caliber. Mediastinum: Heart size is normal. Calcification of the coronary vasculature is present. No pericardial effusion. No mediastinal or hilar adenopathy by size criteria. Central pulmonary arteries are normal in size. Esophagus is normal in caliber. No hiatal hernias. Bones and chest wall: No axillary adenopathy by size criteria. Thyroid gland is within normal limits . No suspicious bony lesions. No vertebral body compression fractures. ABDOMEN: Vasculature: Celiac trunk and mesenteric arteries are patent. Renal arteries are also patent. Solid organs: Liver is normal in size and enhancement. Gallbladder is surgically absent . Biliary system is non dilated. Pancreas enhances normally. Spleen is normal in size and enhancement. No adrenal nodules. Both kidneys are normal in size and enhancement, without hydronephrosis. Peritoneum and bowel: No free fluid or air. Bowel loops are normal in caliber and wall thickness. Nodes and vessels: No retroperitoneal or mesenteric adenopathy by size criteria. Inferior vena cava is normal in morphology. Miscellaneous: No ventral hernias. PELVIS: Genitourinary: Bladder wall thickness is normal. Miscellaneous: No inguinal hernias or adenopathy. No ventral hernias. Bones: No suspicious bony lesions. No vertebral body compression fractures. IMPRESSION: 1. No acute process involving the thoracoabdominal aorta. 2. Right lower lobe reticulonodular density, which is indeterminate, and could represent an atypical infectious process (e.g., mycobacterial or fungal infection), or scarring. Follow-up is recommended as below. 3. Coronary artery disease. Fleischner Society criteria for SOLID lung nodule followup. Nodule size (mm)Low-risk patientHigh-risk patient<6 (single or multiple)No routine followup.Optional CT at 12 months. 6-8 (single or multiple)CT at 6-12 months, then optional CT at 18-24 mo.CT at 6-12 months, then CT at 18-24 months. >8 (single)CT, PET-CT, or biopsy at 3 months. Same as for low-risk pts. >8 (multiple)CT at 3-6 months, then optional CT at 18-24 mo.CT at 3-6 months, then CT at 18-24 months. Fleischner Society criteria for SUB-SOLID lung nodule followup. Solitary pure ground-glass nodules<6 mm (ground glass or part solid)No followup needed. 6 mm or larger (ground glass)CT at 6-12 months to confirm persistence, then CT every 2 years until 5 years.6 mm or larger (part solid)CT at 3-6 months to confirm persistence, then annual CT until 5 years if unchanged and solid component remains <6 mm. Multiple sub-solid nodules<6 mmCT at 3-6 months, then CT consider at 2 & 4 years for high risk patients. [address] at 3-6 months. Subsequent management based on most suspicious lesions. Recommendations do not apply to lung cancer screening, patients with immunosuppression, or patients with known primary cancer. Dictated by: Dane Barlow M.D. on 01/08/2023 at 8:07 Approved by: Dane Barlow M.D. on 01/08/2023 at 8:12
== END 2023-01-08 05:19 | disposition home or self-care (01) ==
PROVIDERS: Emergency Provider Emergency Medicine; PCP Internal Medicine
DX: I10 Essential (primary) hypertension (principal); R07.9 Chest pain, unspecified
CPT/HCPCS: 36415; 71045; 71275; 74174; 80053; 82550; 82553; 83690; 84484; 85025; 93005; 99283; 99284; Q9967

== ENCOUNTER → 2023-06-19 15:05 | Outpatient (CLI) | payer MEDICARE, SELFPAY ==
[2023-06-19 16:56] LABS: Cholesterol 203 mg/dL (140-199); HDL Cholesterol 60 mg/dL (40-60); LDL Cholesterol Calculated 100 mg/dL (<100); Triglycerides 213 mg/dL (35-150)
== END ==
PROVIDERS: PCP Internal Medicine; Referring Provider Internal Medicine Cardiovascular Disease; Visit Provider Internal Medicine Cardiovascular Disease
DX: I10 Essential (primary) hypertension (principal); I65.22 Occlusion and stenosis of left carotid artery
CPT/HCPCS: 36415; 80061

== ENCOUNTER → 2023-06-27 15:48 | Outpatient (CLI) | payer MEDICARE, SELFPAY ==
--- NOTE | 2023-06-27 15:50 | DI.US.S_ITS ---
PROCEDURE: US CAROTID DOPPLER BI INDICATIONS: HTN/STENOSIS OF LEFT CAROTID ARTERY TECHNIQUE: Color and pulse Doppler interrogation was performed of both carotid systems, with image documentation and velocity measurements. COMPARISON: None. FINDINGS: Stenosis calculations are based on SRU (Society of Radiologists in Ultrasound) criteria. Right side: Brachial blood pressure: Unable to obtain Common carotid artery peak systolic velocity: 86 cm/sec. Internal carotid artery peak systolic velocity: 114 cm/sec. Internal carotid artery end diastolic velocity: 34 cm/sec. External carotid artery peak systolic velocity: 105 cm/sec. ICA/CCA peak systolic ratio: 1.36 Mcclelland scale imaging description: [id number] atherosclerotic plaque is seen at the origin of right internal carotid artery Percent internal carotid artery stenosis: Less than 50 percent. Vertebral artery: Flow direction is antegrade. Left side: Brachial blood pressure: Unable to obtain. Common carotid artery peak systolic velocity: 91 cm/sec. Internal carotid artery peak systolic velocity: 187 cm/sec. Internal carotid artery end diastolic velocity: 38 cm/sec. External carotid artery peak systolic velocity: 105 cm/sec. ICA/CCA peak systolic ratio: 2.0. Mcclelland scale imaging description: Moderate amount of atherosclerotic plaque is seen at the origin of left internal carotid artery. Percent internal carotid artery stenosis: 50-69 percent. Vertebral artery: Flow direction is antegrade. IMPRESSION: 1. Moderate atherosclerotic plaque involving origin of left internal carotid artery with 50-69 percent stenosis. 2. [id number] atherosclerotic plaques seen in origin of right internal carotid artery with less than 50 percent stenosis. Dictated by: Bahman Kelsey M.D. on 06/27/2023 at 21:03 Approved by: Bahman Kelsey M.D. on 06/27/2023 at 21:06
== END ==
PROVIDERS: PCP Internal Medicine; Referring Provider Internal Medicine Cardiovascular Disease; Visit Provider Internal Medicine Cardiovascular Disease
DX: I65.23 Occlusion and stenosis of bilateral carotid arteries (principal); I10 Essential (primary) hypertension
CPT/HCPCS: 93880

== ENCOUNTER → 2023-09-27 14:03 | Outpatient (CLI) | payer MEDICARE, SELFPAY ==
[2023-09-27 15:18] LABS: Alanine Aminotransferase 62 IU/L (<35); Albumin 4.3 g/dL (3.5-5.0); Albumin Globulin Ratio 1.5 (1.0-2.8); Alkaline Phosphatase 72 U/L (38-126); Aspartate Aminotransferase 54 IU/L (14-36); BUN Creatinine Ratio 28.4 (6-22); Blood Urea Nitrogen 23 mg/dL (7-17); Calcium 9.3 mg/dL (8.4-10.2); Carbon Dioxide 29 mmol/L (22-32); Chloride 108 mmol/L (98-107); Cholesterol 125 mg/dL (140-199); Estimated Glomerular Filt Rate > 60 mL/min (>60); Globulin 2.8 g/dL (1.7-4.1); Glucose 89 mg/dL (80-110); HDL Cholesterol 47 mg/dL (40-60); HEMOLYSIS < 15 (0-50); LDL Cholesterol Calculated 33 mg/dL (<100); Potassium 4.2 mmol/L (3.4-5.1); Sodium 140 mmol/L (137-145); Total Protein 7.1 g/dL (6.3-8.2); Triglycerides 224 mg/dL (35-150)
== END ==
LOC: LAB 14:04
PROVIDERS: PCP Student in an Organized Health Care Education/Training Program; Referring Provider Nurse Practitioner; Visit Provider Nurse Practitioner
DX: I65.22 Occlusion and stenosis of left carotid artery (principal); I71.23 Aneurysm of the descending thoracic aorta, without rupture; E78.5 Hyperlipidemia, unspecified
CPT/HCPCS: 36415; 80053; 80061

== ENCOUNTER → 2023-10-30 14:30 | Outpatient (CLI) | payer MEDICARE, SELFPAY ==
[2023-10-30 16:04] LABS: Alanine Aminotransferase 28 IU/L (<35); Albumin 4.5 g/dL (3.5-5.0); Albumin Globulin Ratio 2.1 (1.0-2.8); Alkaline Phosphatase 77 U/L (38-126); Aspartate Aminotransferase 35 IU/L (14-36); BUN Creatinine Ratio 23.1 (6-22); Bilirubin Total 0.8 mg/dL (0.2-1.3); Blood Urea Nitrogen 21 mg/dL (7-17); Calcium 9.8 mg/dL (8.4-10.2); Carbon Dioxide 29 mmol/L (22-32); Chloride 108 mmol/L (98-107); Estimated Glomerular Filt Rate > 60 mL/min (>60); Globulin 2.1 g/dL (1.7-4.1); Glucose 80 mg/dL (80-110); HEMOLYSIS < 15 (0-50); Potassium 4.9 mmol/L (3.4-5.1); Sodium 140 mmol/L (137-145); Total Protein 6.6 g/dL (6.3-8.2)
== END ==
PROVIDERS: PCP Student in an Organized Health Care Education/Training Program; Referring Provider Nurse Practitioner; Visit Provider Nurse Practitioner
DX: E78.5 Hyperlipidemia, unspecified (principal)
CPT/HCPCS: 36415; 80053

== ENCOUNTER → 2024-01-03 10:50 | Outpatient (CLI) | payer MEDICARE, SELFPAY ==
--- NOTE | 2024-01-03 10:51 | DI.MG.S_ITS ---
BILATERAL DIGITAL SCREENING MAMMOGRAM 3D/2D WITH CAD: 01/03/2024 CLINICAL: Routine screening. Family history of breast cancer. Comparison is made to exams dated: 02/08/2022 mammogram and 04/24/2019 mammogram - [facility]. Both breasts are heterogeneously dense, which may obscure small masses (category c / 51-75% glandular tissue). Current study was also evaluated with a Computer Aided Detection (CAD) system. There are benign post operative findings in the left breast. No significant masses, calcifications, or other findings are seen in either breast. There has been no significant interval change. IMPRESSION: BENIGN There is no mammographic evidence of malignancy. A 1 year screening mammogram is recommended. Based on the Tyrer Cuzick model (a risk assessment model) the patient's lifetime risk is 8.2% and her 10 year risk is 0.0%. According to the ACR, ACS, and NCCN guidelines, an annual breast MRI exam along with mammogram is recommended if the patient's lifetime risk is 20% or greater. This exam was interpreted at Station ID: [id number]. NOTE: For mammograms, a report in lay terms will be sent to the patient. Approximately 15% of breast malignancies will not be visualized mammographically. In the management of a palpable breast mass, a negative mammogram must not discourage biopsy of a clinically suspicious lesion. Electronically Signed By: Ortiz sandhu/javier:01/04/2024 11:39:59 letter sent: Normal Exam ACR BI-RADS Category 2: Benign Finding(s) 3342F
--- NOTE | 2024-01-03 10:51 | DI.RAD.S_ITS ---
PROCEDURE: XR DEXA AXIAL SKELETON INDICATIONS: Bone density scan COMPARISON: None. FINDINGS: Lumbar Spine: Bone mineral density 0.964 g/cm2, T score -0.8. Left Hip: Bone mineral density is 0.660 g/cm2, T score -2.3. Left Femoral Neck: Bone mineral density 0.552 g/cm2, T score -2.7. Right Hip: Bone mineral density 0.715 g/cm2, T score -1.9. Right Femoral Neck: Bone mineral density 0.538 g/cm2, T score -2.8. Fracture Risk Calculation (when applicable): 10-year fracture risk of a major osteoporotic fracture without prior fracture 21%, with prior fracture 29% and of a hip fracture without prior fracture 7.8%, with prior fracture 10%. (T score greater or equal to -1.0 to: NORMAL) (T score from -1.1 to -2.4: OSTEOPENIA) (T score less than or equal to -2.5: OSTEOPOROSIS) IMPRESSION: 1. Osteoporosis of the bilateral femoral necks. Follow-up guidelines as follows: Osteoporosis: Consider a repeat DEXA and Vertebral Fracture Assessment (VFA) exam in 2 years or sooner if medically necessary, to reassess this patient's status. Osteopenia: Consider a repeat DEXA in 2-3 years to reassess this patient's status, or if there is a new clinical indication. Normal: Consider a repeat DEXA in 5 years or sooner, or if there is a new clinical indication. All treatment decisions require clinical judgment and consideration of individual patient factors, including patient preferences, comorbidities, previous drug use, risk factors not captured in the FRAX model (e.g., frailty, falls, vitamin D deficiency, increased bone turnover, interval significant decline in bone density ) and possible under- or over-estimation of fracture risk by FRAX. In addition, the NOF Guide recommends that FDA-approved medical therapies be considered in postmenopausal women and men age >= 50 years with a: * Hip or vertebral (clinical or morphometric) fracture * T-score of <=-2.5 at the spine or hip * Ten-year fracture probability by FRAX of >= 3% for hip fracture or >=20% for major osteoporotic fracture. People with diagnosed cases of osteoporosis or at high risk for fracture should have regular bone mineral density tests. For patients eligible for Medicare, routine testing is allowed once every 2 years. The testing frequency can be increased to one year for patients who have rapidly progressing disease, those who are receiving or discontinuing medical therapy to restore bone mass, or have additional risk factors. Dictated by: Shakira Wasserman M.D. on 01/03/2024 at 13:57 Approved by: Shakira Wasserman M.D. on 01/03/2024 at 13:59
== END ==
PROVIDERS: PCP Student in an Organized Health Care Education/Training Program; Referring Provider Student in an Organized Health Care Education/Training Program; Visit Provider Student in an Organized Health Care Education/Training Program
DX: M81.0 Age-related osteoporosis without current pathological fracture (principal); Z12.31 Encounter for screening mammogram for malignant neoplasm of breast; Z80.3 Family history of malignant neoplasm of breast; R92.333 Mammographic heterogeneous density, bilateral breasts
CPT/HCPCS: 77063; 77067; 77080

== ENCOUNTER → 2024-01-10 13:18 | Outpatient (CLI) | payer MEDICARE, SELFPAY ==
[2024-01-10 14:31] LABS: Alanine Aminotransferase 52 IU/L (<35); Albumin 4.5 g/dL (3.5-5.0); Albumin Globulin Ratio 1.7 (1.0-2.8); Alkaline Phosphatase 63 U/L (38-126); Aspartate Aminotransferase 48 IU/L (14-36); BUN Creatinine Ratio 24.7 (6-22); Bilirubin Total 1.3 mg/dL (0.2-1.3); Blood Urea Nitrogen 20 mg/dL (7-17); Calcium 9.5 mg/dL (8.4-10.2); Carbon Dioxide 29 mmol/L (22-32); Chloride 104 mmol/L (98-107); Cholesterol 87 mg/dL (140-199); Estimated Glomerular Filt Rate > 60 mL/min (>60); Globulin 2.6 g/dL (1.7-4.1); Glucose 90 mg/dL (80-110); HDL Cholesterol 70 mg/dL (40-60); HEMOLYSIS < 15 (0-50); LDL Cholesterol Calculated 0 mg/dL (<100); Potassium 4.5 mmol/L (3.4-5.1); Sodium 140 mmol/L (137-145); Total Protein 7.1 g/dL (6.3-8.2); Triglycerides 83 mg/dL (35-150)
== END ==
PROVIDERS: PCP Student in an Organized Health Care Education/Training Program; Referring Provider Nurse Practitioner; Visit Provider Nurse Practitioner
DX: E78.5 Hyperlipidemia, unspecified (principal)
CPT/HCPCS: 36415; 80053; 80061

== ENCOUNTER 2024-01-28 12:41 | Emergency (ER) | payer MEDICARE, SELFPAY ==
[2024-01-28 12:58] VITALS: BP 163/74; PULSE 63; RESP 16; TEMP 36.7; O2SAT 97; BMI 23.0
--- NOTE | 2024-01-28 13:21 | DI.RAD.S_ITS ---
PROCEDURE: XR HUMERUS RT 2V INDICATIONS: R arm pain after injury TECHNIQUE: 2 views of the humerus were acquired. COMPARISON: None. FINDINGS: Bones: No acute fractures or dislocations. No suspicious bony lesions. Moderate acromioclavicular joint osteoarthrosis and mild glenohumeral osteoarthrosis. Humeral head is mildly high riding. Soft tissues: No suspicious soft tissue calcifications. IMPRESSION: No acute osseous abnormality. If there is continued clinical concern or persistent symptoms, repeat radiographs or cross-sectional imaging (e.g. CT, MRI) may be helpful for further evaluation. Approved by: Gurjit Pelayo M.D. on 01/28/2024 at 14:46
--- NOTE | 2024-01-28 13:21 | DI.RAD.S_ITS ---
PROCEDURE: XR SHOULDER RT MIN 2V INDICATIONS: R shoulder pain after injuruy TECHNIQUE: 3 views of the shoulder were acquired. COMPARISON: None. FINDINGS: Bones: No acute fractures or dislocations. No suspicious bony lesions. Visualized ribs appear intact. Moderate acromioclavicular joint osteoarthrosis. Narrowing of the acromial humeral interval could indicate underlying rotator cuff pathology. Soft tissues: No suspicious soft tissue calcifications. IMPRESSION: 1. No acute osseous fracture. 2. Mildly high-riding humeral head could indicate underlying rotator cuff tendon pathology. MRI could be performed for further evaluation if indicated clinically. 3. Moderate acromioclavicular joint osteoarthrosis. Approved by: Gurjit Pelayo M.D. on 01/28/2024 at 14:45
--- NOTE | 2024-01-28 15:06 | ED_ITS ---
HPI - General Adult General Chief complaint: Extremity Injury, Upper Stated complaint: R arm injury Time Seen by Provider: 01/28/24 14:58 Source: patient Mode of arrival: Ambulatory History of Present Illness HPI narrative: Patient is a 78-year-old female here for evaluation of an injury to her right biceps muscle. She was concerned that maybe she tore her right biceps. In the past 24 hours she was lifting a wheelchair into the back of the car and heard a pop and tearing sensation in her right arm. Has had very minimal discomfort since then in his able to move her arm. No shoulder discomfort. No elbow discomfort. Has bruising where her right bicep would be. It is also for on the side compared to the other side. No prior injuries. Has not tried anything for the symptoms prior to arrival. Related Data Home Medications Medication Instructions Recorded Confirmed lisinopril 10 mg tablet 10 mg PO DAILY 01/30/18 05/02/22 pravastatin 40 mg tablet 40 mg PO DAILY 01/30/18 05/02/22 vitamin B complex 1 tab PO DAILY 01/30/18 07/07/21 metoprolol tartrate 25 mg tablet 25 mg PO DAILY PRN Hypertension 03/16/22 05/02/22 carvedilol 6.25 mg tablet 6.25 mg PO BID 07/11/23 07/11/23 Previous Rx's Medication Instructions Recorded alendronate 10 mg tablet 10 mg PO DAILY #90 tabs 01/12/24 Allergies Allergy/AdvReac Type Severity Reaction Status Date / Time No Known Drug Allergies Allergy Verified 01/28/24 13:05 Review of Systems Constitutional Constitutional: Reports system reviewed and no additional complaints, except as documented Musculoskeletal Musculoskeletal: Reports system reviewed and no additional complaints, except as documented Integumentary/Breasts Skin/Breast: Reports system reviewed and no additional complaints, except as documented Patient History Medical History Diverticular disease (~2021) Skin cancer Hypertension Surgical History Hx laparoscopic cholecystectomy History of laparoscopic appendectomy History of eyelid surgery Social History household members: spouse Smoking Status: Never smoker alcohol intake: current Smoking Status: Never smoker alcohol intake frequency: a few times a month Substance Use Type: does not use Exam Initial Vital Signs Initial Vital Signs: Vital Signs Temperature 98.0 F 01/28/24 12:58 Pulse Rate 63 01/28/24 12:58 Respiratory Rate 16 01/28/24 12:58 Blood Pressure 163/74 H 01/28/24 12:58 Pulse Oximetry 97 01/28/24 12:58 Oxygen Delivery Method Room Air 01/28/24 12:58 Const General: cooperative, comfortable and No ill appearing Skin Other: Bruising over right bicep muscle Neuro Sensory Exam: no sensory deficits noted Extrem Other: Patient does have fullness of the right biceps muscle with what appears to be a deficit in the proximal region of this. She was able to flex and extend at the elbow. Right shoulder is unremarkable. Course Orders Ordered: ED Orders 01/28/24 13:21 XR humerus RT 2V Stat XR shoulder RT min 2V Stat Vital Signs Vital signs: Vital Signs - 8 hr 01/28/24 12:58 Temperature 98.0 F Pulse Rate 63 Respiratory Rate 16 Blood Pressure 163/74 H Pulse Oximetry 97 Oxygen Delivery Method Room Air Medical Decision Making Imaging Data Extremity x-ray #1: Radiologist's Impression: PROCEDURE: XR HUMERUS RT 2V INDICATIONS: R arm pain after injury TECHNIQUE: 2 views of the humerus were acquired. COMPARISON: None. FINDINGS: Bones: No acute fractures or dislocations. No suspicious bony lesions. Moderate acromioclavicular joint osteoarthrosis and mild glenohumeral osteoarthrosis. Humeral head is mildly high riding. Soft tissues: No suspicious soft tissue calcifications. IMPRESSION: No acute osseous abnormality. If there is continued clinical concern or persistent symptoms, repeat radiographs or cross-sectional imaging (e.g. CT, MRI) may be helpful for further evaluation. Extremity x-ray #2: Radiologist's Impression: PROCEDURE: XR SHOULDER RT MIN 2V INDICATIONS: R shoulder pain after injuruy TECHNIQUE: 3 views of the shoulder were acquired. COMPARISON: None. FINDINGS: Bones: No acute fractures or dislocations. No suspicious bony lesions. Visualized ribs appear intact. Moderate acromioclavicular joint osteoarthrosis. Narrowing of the acromial humeral interval could indicate underlying rotator cuff pathology. Soft tissues: No suspicious soft tissue calcifications. IMPRESSION: 1. No acute osseous fracture. 2. Mildly high-riding humeral head could indicate underlying rotator cuff tendon pathology. MRI could be performed for further evaluation if indicated clinically. 3. Moderate acromioclavicular joint osteoarthrosis. MDM Narrative Medical decision making narrative: Patient is neurovascularly intact. X-ray shows no fractures. I do have concern about either a partial or full tear of the right biceps region. Patient would require follow-up with orthopedic surgery. No indication for advanced imaging here in the emergency department and I did discuss this with her. She potential ly will need more advanced imaging but this can be ordered by either her primary doctor or the orthopedic providers. She potentially will only need physical therapy as well. I discuss this with her. No indication for sling today. He was given resources and phone numbers for follow-up with orthopedics. Discharge Plan Departure Patient Disposition: Home Clinical Impression: Tear of biceps muscle Instructions: How To Perform RICE (Rest, Ice, Compress, Elevate) Activity Restrictions/Additional Instructions: Your activity is only limited by your discomfort. You can put ice over the area. I do recommend that tomorrow you contact your primary doctor and also of the orthopedic doctors in the number provided below to discuss follow-up. Return to the emergency department for new or worsening symptoms. Prescriptions: No Action carvedilol 6.25 mg tablet 6.25 mg PO BID Rx Instructions: must administer with a meal/food alendronate 10 mg tablet 10 mg PO DAILY Qty: 90 3RF pravastatin 40 mg tablet 40 mg PO DAILY Patient Comments: TK 1 T PO QD lisinopril 10 mg tablet 10 mg PO DAILY vitamin B complex 1 tab PO DAILY metoprolol tartrate 25 mg tablet 25 mg PO DAILY PRN (Reason: Hypertension) Referrals: Eliceo Spain MD [Physician] - Josette Salvador MD [Primary Care Provider] - Stand Alone Forms: Patient Portal/API
== END 2024-01-28 15:34 | disposition home or self-care (01) ==
PROVIDERS: Emergency Provider Emergency Medicine; PCP Student in an Organized Health Care Education/Training Program
DX: S46.211A Strain of muscle, fascia and tendon of other parts of biceps, right arm, initial encounter (principal); X50.0XXA Overexertion from strenuous movement or load, initial encounter
CPT/HCPCS: 73030; 73060; 99281; 99282; 99283

== ENCOUNTER → 2024-02-12 10:56 | Outpatient (CLI) | payer MEDICARE, SELFPAY ==
[2024-02-12 12:36] LABS: Alanine Aminotransferase 27 IU/L (<35); Albumin 4.2 g/dL (3.5-5.0); Albumin Globulin Ratio 1.8 (1.0-2.8); Alkaline Phosphatase 87 U/L (38-126); Aspartate Aminotransferase 34 IU/L (14-36); BUN Creatinine Ratio 25.6 (6-22); Bilirubin Total 0.9 mg/dL (0.2-1.3); Blood Urea Nitrogen 21 mg/dL (7-17); Calcium 8.9 mg/dL (8.4-10.2); Carbon Dioxide 25 mmol/L (22-32); Chloride 106 mmol/L (98-107); Estimated Glomerular Filt Rate > 60 mL/min (>60); Globulin 2.3 g/dL (1.7-4.1); Glucose 96 mg/dL (80-110); HEMOLYSIS < 15 (0-50); Potassium 4.5 mmol/L (3.4-5.1); Sodium 137 mmol/L (137-145); Total Protein 6.5 g/dL (6.3-8.2)
== END ==
PROVIDERS: PCP Student in an Organized Health Care Education/Training Program; Referring Provider Nurse Practitioner; Visit Provider Nurse Practitioner
DX: I10 Essential (primary) hypertension (principal); E78.5 Hyperlipidemia, unspecified; I65.22 Occlusion and stenosis of left carotid artery; I71.33 Infrarenal abdominal aortic aneurysm, ruptured
CPT/HCPCS: 36415; 80053

== ENCOUNTER → 2024-07-31 13:40 | Outpatient (CLI) | payer MEDICARE, SELFPAY ==
--- NOTE | 2024-07-31 13:50 | DI.RAD.S_ITS ---
PROCEDURE: XR CERVICAL SPINE 2V OR 3V INDICATIONS: neck pain TECHNIQUE: 3 view(s) of the cervical spine were acquired. COMPARISON: None. FINDINGS: Bones: No fractures or dislocations to the T1 level. Straightening of normal cervical lordosis. Degenerative endplate changes, loss of disc height and bilateral uncovertebral hypertrophic changes are noted throughout cervical spine. The lateral masses of C1 appear intact on the odontoid view. No suspicious bony lesions. Soft tissues: No prevertebral soft tissue swelling. IMPRESSION: No acute cervical spine fracture or dislocation. Mild to moderate degenerative disc disease throughout cervical spine. Dictated by: Bahman Kelsey M.D. on 07/31/2024 at 15:46 Approved by: Bahman Kelsey M.D. on 07/31/2024 at 15:47
[2024-07-31 14:34] LABS: Add Manual Diff / Slide Review NO; Basophils Absolute Auto 0 /uL (0-100); Basophils Percent Auto 0.4 % (0-2); Eosinophils Absolute Auto 100 /uL (0-450); Eosinophils Percent Auto 1.2 % (2-4); Hemoglobin 13.8 g/dL (12.0-16.0); Lymphocytes Absolute Auto 2100 /uL (1100-4500); Lymphocytes Percent Auto 33.3 % (25-40); Mean Corpuscular HGB Conc 33.8 % (30-36); Mean Corpuscular Hemoglobin 30.4 PG (26-34); Mean Corpuscular Volume 89.9 fL (80-100); Monocytes Absolute Auto 400 /uL (0-900); Monocytes Percent Auto 6.3 % (3-14); Neutrophils Absolute Auto 3700 /uL (1500-7000); Neutrophils Percent Auto 58.8 % (50-75); Platelet Count 203 X10^3/uL (150-400); Red Blood Cell Count 4.55 X10^6/uL (4.0-5.2); Red Cell Distribution Width 13.1 % (11.6-14.8); White Blood Cell Count 6.3 X10^3/uL (4.5-11.0)
[2024-07-31 14:51] LABS: Alanine Aminotransferase 26 IU/L (<35); Albumin 4.7 g/dL (3.5-5.0); Alkaline Phosphatase 66 U/L (38-126); Aspartate Aminotransferase 37 IU/L (14-36); BUN Creatinine Ratio 22.6 (6-22); Bilirubin Total 1.1 mg/dL (0.2-1.3); Blood Urea Nitrogen 19 mg/dL (7-17); Calcium 10.1 mg/dL (8.4-10.2); Carbon Dioxide 25 mmol/L (22-32); Chloride 105 mmol/L (98-107); Cholesterol 118 mg/dL (140-199); Estimated Glomerular Filt Rate > 60 mL/min (>60); Globulin 2.3 g/dL (1.7-4.1); Glucose 94 mg/dL (80-110); HDL Cholesterol 74 mg/dL (40-60); HEMOLYSIS < 15 (0-50); LDL Cholesterol Calculated 24 mg/dL (<100); Potassium 4.4 mmol/L (3.4-5.1); Sodium 139 mmol/L (137-145); Triglycerides 99 mg/dL (35-150)
[2024-07-31 15:02] LABS: LDL Cholesterol Direct 30 mg/dL (<100)
[2024-07-31 15:21] LABS: Thyroid Stimulating Hormone 2.88 uIU/mL (0.47-4.68)
== END ==
LOC: LAB 13:49
PROVIDERS: Nurse Practitioner; PCP Student in an Organized Health Care Education/Training Program; Referring Provider Student in an Organized Health Care Education/Training Program; Visit Provider Student in an Organized Health Care Education/Training Program
DX: I49.3 Ventricular premature depolarization (principal); I10 Essential (primary) hypertension; R93.89 Abnormal findings on diagnostic imaging of other specified body structures; E78.5 Hyperlipidemia, unspecified; M50.30 Other cervical disc degeneration, unspecified cervical region
CPT/HCPCS: 36415; 72040; 80053; 80061; 83721; 84443; 85025